=== PATIENT | male | born 1930 | race Caucasian/White ===

== ENCOUNTER 2018-10-12 12:51 | Observation (INO) | payer MEDICARE, OTHER ==
[~2018-10-12] VITALS: Ht 167.6 cm; Wt 93.5 kg
[~2018-10-12 12:51] MED LIST: ADULT ASPIRIN R81 MG PO; ADULT LOW DOSE81 MG PO; ALLOPURINOL100 MG PO; CLARITIN10 M2 PO; CLOPIDOGREL75 MG PO; CRESTOR40 MG PO; DAILY VITAMIN1 EAC2 PO; ETODOLAC400 MG PO; FENOFIBRATE160 MG PO; FLEXERIL10 MG PO; GABAPENTIN600 MG PO; GLUCOPHAGE XR500 MG PO; GLUCOPHAGE500 MG PO; JANUMET 50-1,01 EACH PO; LANTUS SOL100 UNIT/1 SUB-Q; LEVOTHYROXINE50 MCG PO; MELATONIN3 MG PO; METOPROLOL SUC100 MG PO; METOPROLOL SUCC50 MG PO; OMEGA 3 1,0001 EACH PO; OXYCODONE HCL5 MG PO; PANTOPRAZOLE SO40 MG PO; PRILOSEC20 MG PO; TOPROL XL50 MG PO; TRAZODONE HCL50 MG PO; TRICOR145 MG; VERAMYST10 GM NAS; VITAMIN D32000 UNI1 PO; ZOLPIDEM TARTRA10 MG PO
--- NOTE | 2018-10-12 22:11 | NUR ---
ROUNDED CHARGE. PATIENT IS RESTING IN BED. JEMMA RN IN THE ROOM. PATIENT DENIES ANY COMMENTS, QUESTIONS OR CONCERNS. NO NEEDS NOTED. CALL LIGHT IN REACH.
--- NOTE | 2018-10-12 22:26 | NUR ---
RECEIVED REPORT FROM DICKSON EASTON. pt ALERT AND AWAKE. NO DEFICITS NOTED. NO REQUESTS AT THIS TIME. WAITING FOR SLIDING SCALE INSULIN TO BE VERIFIED BY PHARMACY. CALL LIGHT WITHIN REACH.
--- NOTE | 2018-10-12 22:45 | NUR ---
BROUGHT PATIENT FROM ER AT 1945 VIA STRETCHER. NIH STROKE SCALE NEGATIVE. PATIENT GOT 2 PERCOCET FOR BACK PAIN AND HAS HAD IS OTHER MEDS. PATIENT'S IV BOTH FLUSH WELL. REPORT GIVEN TO DICKSON PERES.
--- NOTE | 2018-10-12 22:55 | NUR ---
CALLED TELE PHARMACY, ORDER FOR SLIDING SCALE VERIFIED. GAVE 3 UNITS PER SLIDING SCALE (SEE MAR). NO FURTHER REQUESTS AT THIS TIME. CALL LIGHT WITHIN REACH.
--- NOTE | 2018-10-12 23:00 | EKG ---
[facility] [address] [place] [address] Signed Sinus rhythm with 1st degree AV block Otherwise normal ECG When compared with ECG of 03-AUG-2018 14:00, No significant change was found Confirmed by FLAVIO BAL MD ([id number]) on 10/12/2018 11:00:40 PM Electronically Signed By: FLAVIO BAL MD 10/12/18 2300 PATIENT NAME: JAMAICA DE LEÓN Electrocardiogram DATE OF : [birth year] PHYSICIAN: FLAVIO BAL MD REPORT #: [id number] REPORT IS CONFIDENTIAL AND NOT TO BE RELEASED WITHOUT AUTHORIZATION
--- NOTE | 2018-10-13 00:20 | NUR ---
CALL LIGHT ON. ASSISTED TO TOILET, 1PA FWW. BACK TO BED. ASSESSMENT DONE. STATED PAIN 03/29. PRN MORPHINE GIVEN (SEE MAR). NO DEFICITS NOTED AT THIS ASSESSMENT. CALL LIGHT WITHIN REACH. NO FURTHER REQUESTS AT THIS TIME.
--- NOTE | 2018-10-13 01:07 | NUR ---
CALL LIGHT ON. pt REQUESTED PAIN MEDICATION. STATED PAIN 03/29. PRN MORPHINE GIVEN (SEE MAR). CALL LIGHT WITHIN REACH. NO FURTHER REQUESTS AT THIS TIME.
--- NOTE | 2018-10-13 02:07 | NUR ---
CALL LIGHT ON. ASSISTED pt TO TOILET AND BACK. VSS. DENIES PAIN AT THIS TIME. CALL LIGHT WITHIN REACH. SCDS ON. IV INFUSING. NO FURTHER REQUESTS AT THIS TIME.
--- NOTE | 2018-10-13 03:27 | NUR ---
CALL LIGHT ON. ASSISTED TO TOILET AND BACK. STATED PAIN 01/27. PRN PAIN MEDICATION GIVEN (SEE MAR). CALL LIGHT WITHIN REACH. NO FURTHER REQUESTS AT THIS TIME.
--- NOTE | 2018-10-13 04:11 | NUR ---
IV PUMP BEEPING. ERROR CORRECTED. ASSESSMENT DONE. NO NEUROLOGICAL DEFICITS NOTED. NO CHANGES FROM PRIOR ASSESSMENT. CALL LIGHT WITHIN REACH. NO REQUESTS AT THIS TIME. RATED PAIN 3/10.
--- NOTE | 2018-10-13 05:07 | NUR ---
pt RESTED ON AND OFF DURING SHIFT. NO NEUROLOGICAL DEFICITS NOTED, ORIENTED TO SELF AND PLACE. DISORIENTED TO DATE. ACCUCHECKS. SBA, FWW. IV RUNNING LR AT 125. SCDS. TELE 7, SINUS RHYTHM. USES CALL LIGHT APPROPRIATELY.
--- NOTE | 2018-10-13 08:08 | NUR ---
PATIENT 1 PERSON ASSIST UP TO THE CHAIR FROM THE BED. HE DENIES ANY DIZZINESS WHILE UP IN THE ROOM. HE IS ALERT AND ORIENTED AT THIS TIME, AM MEDICATION GIVEN
--- NOTE | 2018-10-13 09:53 | NUR ---
PATIENT AMBULATED AROUND THE HALLWAY WITH PHYSICAL THERAPY.
--- NOTE | 2018-10-13 10:30 | NUR ---
PATIENT UP TO THE CHAIR, HAS NO C/O PAIN OR NEEDS AT THIS TIME, PRESENT, PATIENT STATES THAT HE IS READY TO D/C TO HOME. AM CARE COMPLETED BY THE [employer] HELPER.
[2018-10-13] MEDS ORDERED: METOPROLOL SUC100 MG PO ×2 (10:59→11:33)
[2018-10-13] MEDS ORDERED: GABAPENTIN300 MG PO (11:00)
--- NOTE | 2018-10-13 11:22 | NUR ---
PT IS EXPECTING TO RETURN HOME WHEN HE IS DC'D TODAY.
[2018-10-13] MEDS ORDERED: CLOPIDOGREL75 MG PO (11:34)
--- NOTE | 2018-10-13 12:35 | NUR ---
PATIENT AND HIS GIVEN D/C INSTRUCTIONS QUESTIONS ANSWERED AND PATIENT WHEELED OUT.
--- NOTE | 2018-10-13 13:22 | NUR ---
PT DRESSED AND READY FOR DC. PHARMACY IN, AND HE IS READY TO GO! IN WITH PT, AND LUNCH DELIVERED TO THEM.PLEASANT, EXTENDED A BLESSING, WILL FOLLOW NEEDED
== END 2018-10-13 12:25 | disposition home or self-care (01) ==
LOC: ED 12:51 → MS 12:52
PROVIDERS: ADMIT Internal Medicine
DX: I95.1 Orthostatic hypotension (principal); E86.0 Dehydration; R47.01 Aphasia; I25.10 Atherosclerotic heart disease of native coronary artery without angina pectoris; Z95.1 Presence of aortocoronary bypass graft; E11.42 Type 2 diabetes mellitus with diabetic polyneuropathy; E03.9 Hypothyroidism, unspecified; Z86.73 Personal history of transient ischemic attack (TIA), and cerebral infarction without residual deficits; G89.29 Other chronic pain; M54.5 Low back pain; D69.6 Thrombocytopenia, unspecified; I65.23 Occlusion and stenosis of bilateral carotid arteries; K21.9 Gastro-esophageal reflux disease without esophagitis; Z85.46 Personal history of malignant neoplasm of prostate; Z79.02 Long term (current) use of antithrombotics/antiplatelets; Z79.82 Long term (current) use of aspirin; Z79.4 Long term (current) use of insulin; Z79.891 Long term (current) use of opiate analgesic; Z79.899 Other long term (current) drug therapy
CPT/HCPCS: 36415; 70450; 70496; 70498; 71045; 80053; 80061; 82565; 83036; 84520; 85025; 85610; 93005; 93010; 93306; 96361; 96374; 96376; 97161; 97530; 99285-25; G0378; J1815; J2270; J7120; Q9967